=== PATIENT | female | born 1935 | race Caucasian/White ===

== ENCOUNTER 2024-01-11 11:01 | Emergency (ER) | payer MEDICAID, OTHER ==
[~2024-01-11] VITALS: Ht 149.9 cm; Wt 59.0 kg
[2024-01-11 11:17] VITALS: BP 149/58; PULSE 83; RESP 18; TEMP 98.1; O2SAT 95
[2024-01-11] MEDS ORDERED: CEPH-588 PO (11:56)
[2024-01-11] MEDS ORDERED: HYD1C TP (11:57)
== END 2024-01-11 12:04 | disposition home or self-care (01) ==
LOC: MED 11:01
DX: L03.114 Cellulitis of left upper limb (principal); I10 Essential (primary) hypertension; E11.9 Type 2 diabetes mellitus without complications; M19.90 Unspecified osteoarthritis, unspecified site; Z79.899 Other long term (current) drug therapy
CPT/HCPCS: 99283